=== PATIENT | female | born 1945 | race Caucasian/White ===

== ENCOUNTER → 2018-08-28 | Emergency (ER) | payer OTHER ==
[~2018-08-28] VITALS: Ht 154.9 cm; Wt 49.0 kg
[~2018-08-28] MED LIST: DICY20TA PO; FLOLIPID40 MG/5 ML PO; LOSARTAN POTASS50 MG PO; PREVACID30 MG PO; ZANTAC150 MG PO
== END | disposition home or self-care (01) ==
LOC: ER 09:40
DX: B34.9 Viral infection, unspecified (principal); J11.1 Influenza due to unidentified influenza virus with other respiratory manifestations